=== PATIENT | female | born 1955 | race Caucasian/White ===

== ENCOUNTER 2017-01-02 20:29 | Emergency (ER) | payer BC ==
[~2017-01-02] VITALS: Ht 160 cm; Wt 59.0 kg
[2017-01-02 22:05] VITALS: BP 151/86
== END 2017-01-02 22:05 | disposition home or self-care (01) ==
LOC: ED 20:29
DX: S93.402A Sprain of unspecified ligament of left ankle, initial encounter (principal); I10 Essential (primary) hypertension; E11.9 Type 2 diabetes mellitus without complications; Z79.84 Long term (current) use of oral hypoglycemic drugs; X58.XXXA Exposure to other specified factors, initial encounter; Y93.89 Activity, other specified; Y99.8 Other external cause status; Y92.89 Other specified places as the place of occurrence of the external cause